=== PATIENT | female | born 1960 | race Caucasian/White ===

== ENCOUNTER 2017-09-05 18:35 | Emergency (ER) | payer MEDICARE, OTHER ==
[~2017-09-05] VITALS: Ht 157.5 cm; Wt 74.8 kg
[~2017-09-05 18:35] MED LIST: ALBU.083IS IH; ALBUIS INH; AMIT75; CEPH500 PO; CRUTCH4 XX; DIVA500EC; GABA100 PO; HYDACE5 PO; LEVSOD75; LEVSOD75 PO; MELO7.5; MONT10T; MONT10T PO; NYSTRITC; OLAN5; PRED10 PO; RANI150; RISP4; TOPI100; Ultram50 MG PO
[2017-09-05] MEDS ORDERED: IBUP600 PO (19:54)
== END 2017-09-05 21:15 | disposition home or self-care (01) ==
LOC: ER 18:35
DX: S40.012A Contusion of left shoulder, initial encounter (principal); S20.212A Contusion of left front wall of thorax, initial encounter; J44.9 Chronic obstructive pulmonary disease, unspecified; F31.9 Bipolar disorder, unspecified; E03.9 Hypothyroidism, unspecified; K21.9 Gastro-esophageal reflux disease without esophagitis; F17.210 Nicotine dependence, cigarettes, uncomplicated; Z91.040 Latex allergy status; Z79.899 Other long term (current) drug therapy; Z86.19 Personal history of other infectious and parasitic diseases; Y04.2XXA Assault by strike against or bumped into by another person, initial encounter
CPT/HCPCS: 71046; 99283

== ENCOUNTER 2017-09-29 23:03 | Emergency (ER) | payer MEDICARE, OTHER ==
[~2017-09-29] VITALS: Ht 157.5 cm; Wt 74.8 kg
[~2017-09-29 23:03] MED LIST changes: +IBUP600 PO
[2017-09-30] MEDS ORDERED: TOPI100 PO (00:17)
[2017-09-30] MEDS ORDERED: Hair, Skin & N1 EACH PO (00:18)
== END 2017-09-30 00:42 | disposition home or self-care (01) ==
LOC: ER 23:03
DX: R59.0 Localized enlarged lymph nodes (principal); S60.222A Contusion of left hand, initial encounter; J44.9 Chronic obstructive pulmonary disease, unspecified; F31.9 Bipolar disorder, unspecified; K21.9 Gastro-esophageal reflux disease without esophagitis; E03.9 Hypothyroidism, unspecified; F17.210 Nicotine dependence, cigarettes, uncomplicated; Z91.040 Latex allergy status; Z79.899 Other long term (current) drug therapy; Z86.19 Personal history of other infectious and parasitic diseases; Y08.89XA Assault by other specified means, initial encounter
CPT/HCPCS: 99282

== ENCOUNTER → 2017-12-07 | Outpatient (CLI) | payer MEDICARE, OTHER ==
[~2017-12-07] MED LIST changes: +Hair, Skin & N1 EACH PO; +TOPI100 PO
[2017-12-07 18:42] LABS: BASOPHILS ABSOLUTE AUTO 0.06 K/mm3 (0.00-0.23); BASOPHILS PERCENT AUTO 1 % (0-2); EOSINOPHILS PERCENT AUTO 1 % (0-6); Hematocrit 49.4 % (33.0-51.0); Hemoglobin 16.5 g/dL (11.5-16.0); IMMATURE GRAN ABSOLUTE AUTO 0.02 K/mm3 (0.00-0.10); IMMATURE GRAN PERCENT AUTO 0 % (0-1); LYMPHOCYTES ABSOLUTE AUTO 1.98 K/mm3 (0.84-5.20); LYMPHOCYTES PERCENT AUTO 25 % (21-46); MONOCYTES ABSOLUTE AUTO 0.48 K/mm3 (0.16-1.47); MONOCYTES PERCENT AUTO 6 % (4-13); Mean Corpuscular HGB 30.6 pg (26.0-34.0); Mean Corpuscular HGB Conc 33.4 g/dL (31.5-36.5); Mean Corpuscular Volume 92 fL (80-100); Mean Platelet Volume 10.2 fL (9.1-12.4); NEUTROPHILS ABSOLUTE AUTO 5.35 K/mm3 (1.96-9.15); NEUTROPHILS PERCENT AUTO 67 % (41-73); Platelet Count 238 K/mm3 (150-400); RDW Coefficient Variation 13.2 % (11.7-14.2); RDW Standard Deviation 44.5 fL (35.1-46.3); White Blood Cell Count 7.99 K/mm3 (4.00-11.30)
[2017-12-07 19:00] LABS: Alanine Aminotransfer (ALT/SGP 25 U/L (12-78); Albumin, Blood 4.3 g/dL (3.4-5.0); Alk Phos 127 U/L (50-136); Anion Gap 7 mmol/L (6-16); Aspartate Aminotrans (AST/SGOT 24 U/L (12-37); Bilirubin, Total 0.4 mg/dL (0.1-1.0); Blood Urea Nitrogen 17 mg/dL (8-24); Bun/Creatinine Ratio 20.2 (12.0-20.0); CHOL/HDL RATIO 2.6; CO2, Blood 26 mmol/L (21-32); Calcium, Blood 9.3 mg/dL (8.5-10.1); Chloride, Blood 106 mmol/L (98-108); Cholesterol 257 mg/dL (50-200); Creatinine, Blood 0.84 mg/dL (0.40-1.00); Free Thyroxine 0.77 ng/dL (0.70-1.60); Globulin, Blood 4.5 g/dL (2.2-4.0); Glomerular Filtration Rate >60 (60-); Glucose, Blood 88 mg/dL (70-99); HDL Cholesterol 97 mg/dL (>39); LDL/HDL RATIO 1.4; Low Density Lipoprotein Chol 131 mg/dL (0-110); Potassium, Blood 3.9 mmol/L (3.5-5.5); Sodium, Blood 139 mmol/L (136-145); Total Protein, Blood 8.8 g/dL (6.4-8.2); Triglycerides 143 mg/dL (30-160); Very Low Density Lipoprot Chol 28 mg/dL (6-32)
[2017-12-08 19:55] LABS: HCV RNA Viral Load (log) Not Detected (NOTDET)
== END | disposition home or self-care (01) ==
LOC: LAB SHORT 18:01 → LAB 18:01
PROVIDERS: Nurse Practitioner Adult Health
DX: B18.2 Chronic viral hepatitis C (principal); E78.5 Hyperlipidemia, unspecified; E03.9 Hypothyroidism, unspecified; F25.0 Schizoaffective disorder, bipolar type
CPT/HCPCS: 80053; 80061; 84439; 84443; 85025; 87389; 87522

== ENCOUNTER → 2017-12-22 | Outpatient (CLI) | payer MEDICARE, OTHER ==
[~2017-12-22] MED LIST changes: +CEFD300 PO; +CYCL10 PO; +Norco 5-325 Ta1 EACH PO; +Zofran Odt4 MG SL
[2017-12-22 10:43] LABS: Source, Urine Clean Catch
[2017-12-22 10:47] LABS: BASOPHILS ABSOLUTE AUTO 0.07 K/mm3 (0.00-0.23); BASOPHILS PERCENT AUTO 1 % (0-2); EOSINOPHILS ABSOLUTE AUTO 0.08 K/mm3 (0.00-0.68); EOSINOPHILS PERCENT AUTO 1 % (0-6); Hematocrit 42.2 % (33.0-51.0); Hemoglobin 14.6 g/dL (11.5-16.0); IMMATURE GRAN ABSOLUTE AUTO 0.03 K/mm3 (0.00-0.10); IMMATURE GRAN PERCENT AUTO 0 % (0-1); LYMPHOCYTES ABSOLUTE AUTO 2.51 K/mm3 (0.84-5.20); LYMPHOCYTES PERCENT AUTO 32 % (21-46); MONOCYTES ABSOLUTE AUTO 0.67 K/mm3 (0.16-1.47); MONOCYTES PERCENT AUTO 9 % (4-13); Mean Corpuscular HGB 31.7 pg (26.0-34.0); Mean Corpuscular HGB Conc 34.6 g/dL (31.5-36.5); Mean Corpuscular Volume 92 fL (80-100); Mean Platelet Volume 9.5 fL (9.1-12.4); NEUTROPHILS ABSOLUTE AUTO 4.42 K/mm3 (1.96-9.15); NEUTROPHILS PERCENT AUTO 57 % (41-73); Platelet Count 246 K/mm3 (150-400); RDW Coefficient Variation 13.2 % (11.7-14.2); RDW Standard Deviation 44.3 fL (35.1-46.3); Red Blood Cell Count 4.61 M/mm3 (3.80-5.20); White Blood Cell Count 7.78 K/mm3 (4.00-11.30)
[2017-12-22 10:57] LABS: Albumin, Blood 4.2 g/dL (3.4-5.0); Albumin/Globulin Ratio 1.1 (0.8-1.8); Bilirubin, Total 0.2 mg/dL (0.1-1.0); Calcium, Blood 9.3 mg/dL (8.5-10.1); Creatinine, Blood 1.05 mg/dL (0.40-1.00); Globulin, Blood 3.8 g/dL (2.2-4.0); Potassium, Blood 4.5 mmol/L (3.5-5.5)
[2017-12-22 11:18] LABS: Bacteria Many /hpf; Red Blood Cells, Urine Not Seen /hpf (0-2); Squamous Epithelial Cells Few /hpf (Few); White Blood Cells, Urine 0-2 /hpf (0-5)
== END | disposition home or self-care (01) ==
LOC: LAB EV 10:35 → LAB SHORT 10:35
PROVIDERS: Physician Assistant
DX: R10.9 Unspecified abdominal pain (principal)
CPT/HCPCS: 80053; 81015; 85025; 87077; 87086; 87186

== ENCOUNTER 2017-12-26 06:04 | Emergency (ER) | payer MEDICARE, OTHER ==
[~2017-12-26] VITALS: Ht 157.5 cm; Wt 81.7 kg
[~2017-12-26 06:04] MED LIST changes: -CEFD300 PO; -CYCL10 PO; -Norco 5-325 Ta1 EACH PO; -Zofran Odt4 MG SL
[2017-12-26] MEDS ORDERED: CEFD300 PO (06:17)
[2017-12-26] MEDS ORDERED: CYCL10 PO (06:17)
[2017-12-26 06:38] LABS: BASOPHILS ABSOLUTE AUTO 0.07 K/mm3 (0.00-0.23); BASOPHILS PERCENT AUTO 1 % (0-2); EOSINOPHILS ABSOLUTE AUTO 0.16 K/mm3 (0.00-0.68); EOSINOPHILS PERCENT AUTO 3 % (0-6); Hematocrit 39.3 % (33.0-51.0); Hemoglobin 13.3 g/dL (11.5-16.0); IMMATURE GRAN ABSOLUTE AUTO 0.02 K/mm3 (0.00-0.10); IMMATURE GRAN PERCENT AUTO 0 % (0-1); LYMPHOCYTES ABSOLUTE AUTO 1.84 K/mm3 (0.84-5.20); LYMPHOCYTES PERCENT AUTO 32 % (21-46); MONOCYTES ABSOLUTE AUTO 0.66 K/mm3 (0.16-1.47); MONOCYTES PERCENT AUTO 12 % (4-13); Mean Corpuscular HGB 31.1 pg (26.0-34.0); Mean Corpuscular HGB Conc 33.8 g/dL (31.5-36.5); Mean Corpuscular Volume 92 fL (80-100); Mean Platelet Volume 9.4 fL (9.1-12.4); NEUTROPHILS ABSOLUTE AUTO 2.93 K/mm3 (1.96-9.15); NEUTROPHILS PERCENT AUTO 52 % (41-73); Platelet Count 200 K/mm3 (150-400); RDW Coefficient Variation 13.3 % (11.7-14.2); Red Blood Cell Count 4.27 M/mm3 (3.80-5.20); White Blood Cell Count 5.68 K/mm3 (4.00-11.30)
[2017-12-26 06:56] LABS: Albumin, Blood 3.6 g/dL (3.4-5.0); Albumin/Globulin Ratio 0.9 (0.8-1.8); Bilirubin, Total 0.3 mg/dL (0.1-1.0); Bun/Creatinine Ratio 25.2 (12.0-20.0); Calcium, Blood 8.6 mg/dL (8.5-10.1); Creatinine, Blood 1.03 mg/dL (0.40-1.00); Globulin, Blood 3.9 g/dL (2.2-4.0); Potassium, Blood 3.9 mmol/L (3.5-5.5); Total Protein, Blood 7.5 g/dL (6.4-8.2)
[2017-12-26 07:17] LABS: Source, Urine Clean Catch
[2017-12-26 07:21] LABS: Bilirubin, Urine Neg (Neg); Blood, Urine Neg (Neg); Glucose Qualitative, Urine Neg (Neg); Ketones, Urine Neg (Neg); Leukocyte Esterase, Urine Neg (Neg); Nitrite, Urine Neg (Neg); Protein, Urine Neg (Neg); Urobilinogen, Urine NORM (Normal)
[2017-12-26 07:34] LABS: Appearance, Urine Clear (Clear); Color, Urine Yellow (P-Yellow)
[2017-12-26] MEDS ORDERED: Norco 5-325 Ta1 EACH PO (09:16)
[2017-12-26] MEDS ORDERED: Zofran Odt4 MG SL (09:16)
== END 2017-12-26 09:53 | disposition home or self-care (01) ==
LOC: ER 06:04
PROVIDERS: Emergency Medicine
DX: R10.11 Right upper quadrant pain (principal); R10.12 Left upper quadrant pain; F31.9 Bipolar disorder, unspecified; F20.9 Schizophrenia, unspecified; J44.9 Chronic obstructive pulmonary disease, unspecified; E03.9 Hypothyroidism, unspecified; K21.9 Gastro-esophageal reflux disease without esophagitis; F17.210 Nicotine dependence, cigarettes, uncomplicated; Z91.040 Latex allergy status; Z79.899 Other long term (current) drug therapy
CPT/HCPCS: 80053; 81003; 85025; 96361; 96374; 96375; 99284; J2405; J3010; J7030

== ENCOUNTER 2018-02-14 05:05 | Emergency (ER) | payer MEDICARE, OTHER ==
[~2018-02-14] VITALS: Ht 157.5 cm; Wt 81.7 kg
[~2018-02-14 05:05] MED LIST changes: +CEFD300 PO; +CYCL10 PO; +Norco 5-325 Ta1 EACH PO; +Zofran Odt4 MG SL
[2018-02-14] MEDS ORDERED: ALBU2.5V5 (05:23)
== END 2018-02-14 06:21 | disposition home or self-care (01) ==
LOC: ER 05:05
DX: S20.212A Contusion of left front wall of thorax, initial encounter (principal); S50.02XA Contusion of left elbow, initial encounter; W17.89XA Other fall from one level to another, initial encounter; Z91.040 Latex allergy status; Z79.899 Other long term (current) drug therapy; J44.9 Chronic obstructive pulmonary disease, unspecified; F32.9 Major depressive disorder, single episode, unspecified; F20.9 Schizophrenia, unspecified; F31.9 Bipolar disorder, unspecified; E03.9 Hypothyroidism, unspecified; K21.9 Gastro-esophageal reflux disease without esophagitis; F17.210 Nicotine dependence, cigarettes, uncomplicated
CPT/HCPCS: 71046; 73080; 99283

== ENCOUNTER 2018-03-06 09:20 | Observation (INO) | payer MEDICARE, OTHER ==
[~2018-03-06] VITALS: Ht 167.6 cm; Wt 99.8 kg
[~2018-03-06 09:20] MED LIST changes: +ALBU2.5V5
[2018-03-06 13:10] LABS: Source, Urine Voided
[2018-03-06 13:19] LABS: BASOPHILS ABSOLUTE AUTO 0.07 K/mm3 (0.00-0.23); BASOPHILS PERCENT AUTO 1 % (0-2); EOSINOPHILS ABSOLUTE AUTO 0.04 K/mm3 (0.00-0.68); EOSINOPHILS PERCENT AUTO 1 % (0-6); Hematocrit 41.5 % (33.0-51.0); IMMATURE GRAN ABSOLUTE AUTO 0.03 K/mm3 (0.00-0.10); IMMATURE GRAN PERCENT AUTO 0 % (0-1); LYMPHOCYTES ABSOLUTE AUTO 2.42 K/mm3 (0.84-5.20); LYMPHOCYTES PERCENT AUTO 28 % (21-46); MONOCYTES ABSOLUTE AUTO 0.75 K/mm3 (0.16-1.47); MONOCYTES PERCENT AUTO 9 % (4-13); Mean Corpuscular HGB 31.7 pg (26.0-34.0); Mean Corpuscular HGB Conc 33.7 g/dL (31.5-36.5); Mean Corpuscular Volume 94 fL (80-100); Mean Platelet Volume 9.3 fL (9.1-12.4); NEUTROPHILS ABSOLUTE AUTO 5.43 K/mm3 (1.96-9.15); NEUTROPHILS PERCENT AUTO 62 % (41-73); Platelet Count 254 K/mm3 (150-400); RDW Coefficient Variation 13.2 % (11.7-14.2); RDW Standard Deviation 46.1 fL (35.1-46.3); Red Blood Cell Count 4.42 M/mm3 (3.80-5.20); White Blood Cell Count 8.74 K/mm3 (4.00-11.30)
[2018-03-06 13:28] LABS: Bilirubin, Urine Neg (Neg); Blood, Urine 1+ (Neg); Glucose Qualitative, Urine Neg (Neg); Ketones, Urine Neg (Neg); Leukocyte Esterase, Urine Neg (Neg); Nitrite, Urine Neg (Neg); Protein, Urine Neg (Neg); Urobilinogen, Urine NORM (Normal)
[2018-03-06 13:39] LABS: Ethanol (Alcohol), Blood, Med <3 mg/dL
[2018-03-06 13:45] LABS: Appearance, Urine Clear (Clear); Color, Urine Yellow (P-Yellow); U Amphetamine Screen DETECTED; U Barbituate Screen Not Detected; U Benzodiazapine Screen Not Detected; U Buprenorphine Screen Not Detected; U Cannabinoids Screen Not Detected; U Cocaine Screen Not Detected; U Methadone Screen Not Detected; U Methamphetamine Screen DETECTED; U Opiates Screen Not Detected; U Oxycodone Screen Not Detected; U Phencyclidine Screen Not Detected; U Propoxyphene Screen Not Detected
[2018-03-06 13:46] LABS: Bacteria Many /hpf; Red Blood Cells, Urine 0-2 /hpf (0-2); Squamous Epithelial Cells Rare /hpf (Few); White Blood Cells, Urine 0-2 /hpf (0-5)
[2018-03-06 13:55] LABS: Acetaminophen, Random <2.0 ug/mL (10.0-30.0); Alanine Aminotransfer (ALT/SGP 20 U/L (12-78); Albumin, Blood 4.1 g/dL (3.4-5.0); Alk Phos 156 U/L (50-136); Anion Gap 11 mmol/L (6-16); Aspartate Aminotrans (AST/SGOT 21 U/L (12-37); Bilirubin, Total 0.6 mg/dL (0.1-1.0); Blood Urea Nitrogen 17 mg/dL (8-24); Bun/Creatinine Ratio 19.6 (12.0-20.0); CO2, Blood 21 mmol/L (21-32); Calcium, Blood 8.6 mg/dL (8.5-10.1); Chloride, Blood 112 mmol/L (98-108); Creatinine, Blood 0.87 mg/dL (0.40-1.00); Globulin, Blood 4.2 g/dL (2.2-4.0); Glomerular Filtration Rate >60 (60-); Glucose, Blood 101 mg/dL (70-99); Potassium, Blood 3.7 mmol/L (3.5-5.5); Sodium, Blood 144 mmol/L (136-145); Total Protein, Blood 8.3 g/dL (6.4-8.2)
== END 2018-03-09 11:35 | disposition home or self-care (01) ==
LOC: ER 09:20 → EOR 09:21
PROVIDERS: Emergency Medicine
DX: R45.851 Suicidal ideations (principal); R45.850 Homicidal ideations; F20.9 Schizophrenia, unspecified; F32.9 Major depressive disorder, single episode, unspecified; J44.9 Chronic obstructive pulmonary disease, unspecified; J45.909 Unspecified asthma, uncomplicated; K21.9 Gastro-esophageal reflux disease without esophagitis; F17.210 Nicotine dependence, cigarettes, uncomplicated; Z79.899 Other long term (current) drug therapy
CPT/HCPCS: 80053; 81001; 81025; 84443; 85025; 87077; 87086; 87186; 96372; 96374; 99285-25; G0378; G0480; J1200; J1630; P9612; Q3014

== ENCOUNTER 2018-10-10 08:29 | Observation (INO) | payer MEDICARE, OTHER ==
[~2018-10-10] VITALS: Ht 157.5 cm; Wt 81.7 kg
[~2018-10-10 08:29] MED LIST changes: -TOPI100 PO; +TOPI25 PO
[2018-10-10 08:58] LABS: BASOPHILS ABSOLUTE AUTO 0.07 K/mm3 (0.00-0.23); BASOPHILS PERCENT AUTO 1 % (0-2); EOSINOPHILS ABSOLUTE AUTO 0.09 K/mm3 (0.00-0.68); EOSINOPHILS PERCENT AUTO 2 % (0-6); Hematocrit 43.2 % (33.0-51.0); Hemoglobin 14.5 g/dL (11.5-16.0); IMMATURE GRAN ABSOLUTE AUTO 0.02 K/mm3 (0.00-0.10); IMMATURE GRAN PERCENT AUTO 0 % (0-1); LYMPHOCYTES ABSOLUTE AUTO 1.46 K/mm3 (0.84-5.20); LYMPHOCYTES PERCENT AUTO 24 % (21-46); MONOCYTES ABSOLUTE AUTO 0.51 K/mm3 (0.16-1.47); MONOCYTES PERCENT AUTO 9 % (4-13); Mean Corpuscular HGB 31.6 pg (26.0-34.0); Mean Corpuscular HGB Conc 33.6 g/dL (31.5-36.5); Mean Corpuscular Volume 94 fL (80-100); Mean Platelet Volume 9.7 fL (9.1-12.4); NEUTROPHILS ABSOLUTE AUTO 3.87 K/mm3 (1.96-9.15); NEUTROPHILS PERCENT AUTO 64 % (41-73); Platelet Count 220 K/mm3 (150-400); RDW Coefficient Variation 12.9 % (11.7-14.2); RDW Standard Deviation 44.3 fL (35.1-46.3); Red Blood Cell Count 4.59 M/mm3 (3.80-5.20); White Blood Cell Count 6.02 K/mm3 (4.00-11.30)
[2018-10-10 09:17] LABS: Alanine Aminotransfer (ALT/SGP 18 U/L (12-78); Albumin, Blood 3.8 g/dL (3.4-5.0); Alk Phos 123 U/L (50-136); Anion Gap 8 mmol/L (6-16); Aspartate Aminotrans (AST/SGOT 19 U/L (12-37); Bilirubin, Total 0.3 mg/dL (0.1-1.0); Blood Urea Nitrogen 23 mg/dL (8-24); Bun/Creatinine Ratio 22.8 (12.0-20.0); CO2, Blood 25 mmol/L (21-32); Calcium, Blood 9.1 mg/dL (8.5-10.1); Chloride, Blood 108 mmol/L (98-108); Creatinine, Blood 1.01 mg/dL (0.40-1.00); Ethanol (Alcohol), Blood, Med 21 mg/dL; Globulin, Blood 3.9 g/dL (2.2-4.0); Glomerular Filtration Rate 60 (60-); Glucose, Blood 100 mg/dL (70-99); Magnesium, Blood 2.3 mg/dL (1.6-2.4); Potassium, Blood 3.9 mmol/L (3.5-5.5); Salicylate 4.3 mg/dL (2.8-20.0); Sodium, Blood 141 mmol/L (136-145); Total Protein, Blood 7.7 g/dL (6.4-8.2)
[2018-10-10 09:37] LABS: Acetaminophen, Random <2.0 ug/mL (10.0-30.0)
[2018-10-10 12:29] LABS: Source, Urine Clean Catch
[2018-10-10 12:50] LABS: Bilirubin, Urine Neg (Neg); Blood, Urine Neg (Neg); Glucose Qualitative, Urine Neg (Neg); Ketones, Urine Neg (Neg); Leukocyte Esterase, Urine Neg (Neg); Nitrite, Urine Neg (Neg); Protein, Urine Neg (Neg); Specific Gravity, Urine 1.015 (1.003-1.022); Urobilinogen, Urine NORM (Normal)
[2018-10-10 13:16] LABS: U Amphetamine Screen DETECTED; U Barbituate Screen Not Detected; U Benzodiazapine Screen Not Detected; U Buprenorphine Screen Not Detected; U Cannabinoids Screen DETECTED; U Cocaine Screen Not Detected; U Methadone Screen Not Detected; U Methamphetamine Screen DETECTED; U Opiates Screen Not Detected; U Oxycodone Screen Not Detected; U Phencyclidine Screen Not Detected; U Propoxyphene Screen Not Detected
[2018-10-10 13:22] LABS: Appearance, Urine Clear (Clear); Color, Urine Pale Yellow (P-Yellow)
[2018-10-10] MEDS ORDERED: QUET100 PO (13:54)
[2018-10-10] MEDS ORDERED: MONT10T PO (13:56)
[2018-10-10] MEDS ORDERED: ALBU90OI61 INH (13:57)
[2018-10-10] MEDS ORDERED: ALBU3IS NEB (13:58)
== END 2018-10-11 15:40 | disposition home or self-care (01) ==
LOC: ER 08:29 → EOR 08:30
PROVIDERS: ADMIT Emergency Medicine
DX: T43.212A Poisoning by selective serotonin and norepinephrine reuptake inhibitors, intentional self-harm, initial encounter (principal); F15.10 Other stimulant abuse, uncomplicated; J44.9 Chronic obstructive pulmonary disease, unspecified; F31.9 Bipolar disorder, unspecified; K21.9 Gastro-esophageal reflux disease without esophagitis; F20.9 Schizophrenia, unspecified; F17.210 Nicotine dependence, cigarettes, uncomplicated; Z91.040 Latex allergy status; Z79.899 Other long term (current) drug therapy
CPT/HCPCS: 36415; 80053; 81003; 81025; 83735; 84443; 85025; 93005; 93010; 99285-25; G0378; G0480; Q3014

== ENCOUNTER → 2021-02-19 | Outpatient (CLI) | payer MEDICARE, OTHER ==
[~2021-02-19] MED LIST changes: +ALBU3IS NEB; +ALBU90OI61 INH; +QUET100 PO
[2021-02-19 18:38] LABS: BASOPHILS ABSOLUTE AUTO 0.08 K/mm3 (0.00-0.23); BASOPHILS PERCENT AUTO 1 % (0-2); EOSINOPHILS ABSOLUTE AUTO 0.06 K/mm3 (0.00-0.68); EOSINOPHILS PERCENT AUTO 1 % (0-6); Hematocrit 43.9 % (33.0-51.0); Hemoglobin 14.9 g/dL (11.5-16.0); IMMATURE GRAN ABSOLUTE AUTO 0.07 K/mm3 (0.00-0.10); IMMATURE GRAN PERCENT AUTO 1 % (0-1); LYMPHOCYTES ABSOLUTE AUTO 2.08 K/mm3 (0.84-5.20); LYMPHOCYTES PERCENT AUTO 24 % (21-46); MONOCYTES ABSOLUTE AUTO 0.59 K/mm3 (0.16-1.47); MONOCYTES PERCENT AUTO 7 % (4-13); Mean Corpuscular HGB Conc 33.9 g/dL (31.5-36.5); Mean Corpuscular Volume 91 fL (80-100); NEUTROPHILS ABSOLUTE AUTO 5.75 K/mm3 (1.96-9.15); NEUTROPHILS PERCENT AUTO 67 % (41-73); RDW Coefficient Variation 13.5 % (11.7-14.2); RDW Standard Deviation 45.6 fL (35.1-46.3); Red Blood Cell Count 4.81 M/mm3 (3.80-5.20); White Blood Cell Count 8.63 K/mm3 (4.00-11.30)
[2021-02-19 19:02] LABS: Mean Platelet Volume 10.8 fL (9.1-12.4); Platelet Count 206 K/mm3 (150-400)
[2021-02-19 22:11] LABS: Alanine Aminotransfer (ALT/SGP 26 U/L (12-78); Albumin/Globulin Ratio 0.9 (0.8-1.8); Alk Phos 121 U/L (50-136); Anion Gap 7 mmol/L (6-16); Aspartate Aminotrans (AST/SGOT 25 U/L (12-37); Bilirubin, Total 0.4 mg/dL (0.1-1.0); Blood Urea Nitrogen 13 mg/dL (8-24); Bun/Creatinine Ratio 13.6 (12.0-20.0); CHOL/HDL RATIO 2.8; CO2, Blood 25 mmol/L (21-32); Calcium, Blood 8.9 mg/dL (8.5-10.1); Chloride, Blood 108 mmol/L (98-108); Cholesterol 237 mg/dL (50-200); Creatinine, Blood 0.96 mg/dL (0.40-1.00); Free Thyroxine 0.79 ng/dL (0.70-1.60); Globulin, Blood 4.3 g/dL (2.2-4.0); Glomerular Filtration Rate >60 (60-); Glucose, Blood 116 mg/dL (70-99); HDL Cholesterol 84 mg/dL (>39); LDL/HDL RATIO 1.6; Low Density Lipoprotein Chol 132 mg/dL (0-110); Potassium, Blood 4.1 mmol/L (3.5-5.5); Sodium, Blood 140 mmol/L (136-145); Total Protein, Blood 8.3 g/dL (6.4-8.2); Triglycerides 103 mg/dL (30-160); Very Low Density Lipoprot Chol 20 mg/dL (6-32)
== END | disposition home or self-care (01) ==
LOC: LAB SHORT 16:48 → LAB 16:48
PROVIDERS: Nurse Practitioner Family
DX: J44.9 Chronic obstructive pulmonary disease, unspecified (principal); E03.9 Hypothyroidism, unspecified
CPT/HCPCS: 80053; 80061; 84439; 84443; 84481; 85025

== ENCOUNTER 2022-03-01 08:32 | Emergency (ER) | payer MEDICARE, OTHER ==
[~2022-03-01] VITALS: Ht 157.5 cm; Wt 113.4 kg
[2022-03-01] MEDS ORDERED: Prednisone50 MG PO (10:27)
== END 2022-03-01 11:19 | disposition home or self-care (01) ==
LOC: ER 08:32
DX: M54.16 Radiculopathy, lumbar region (principal); J44.9 Chronic obstructive pulmonary disease, unspecified; F17.210 Nicotine dependence, cigarettes, uncomplicated
CPT/HCPCS: 72100; 96372; 99283-25; A9270; J1100

== ENCOUNTER 2022-03-26 07:47 | Emergency (ER) | payer MEDICARE, OTHER ==
[~2022-03-26] VITALS: Ht 157.5 cm; Wt 113.4 kg
[~2022-03-26 07:47] MED LIST changes: +Prednisone50 MG PO
[2022-03-26] MEDS ORDERED: Percocet 5-3251 EACH PO (08:50)
== END 2022-03-26 10:04 | disposition home or self-care (01) ==
LOC: ER 07:47
DX: M54.50 Low back pain, unspecified (principal); J44.9 Chronic obstructive pulmonary disease, unspecified; F32.A Depression, unspecified; K21.9 Gastro-esophageal reflux disease without esophagitis; E03.9 Hypothyroidism, unspecified; F17.210 Nicotine dependence, cigarettes, uncomplicated; Z79.899 Other long term (current) drug therapy; Z79.52 Long term (current) use of systemic steroids; Z91.040 Latex allergy status
CPT/HCPCS: A9270

== ENCOUNTER 2022-06-03 19:00 | Emergency (ER) | payer MEDICARE, OTHER ==
[~2022-06-03] VITALS: Ht 157.5 cm; Wt 111.1 kg
[~2022-06-03 19:00] MED LIST changes: +Percocet 5-3251 EACH PO
[2022-06-03 20:20] LABS: BASOPHILS ABSOLUTE AUTO 0.05 K/mm3 (0.00-0.23); BASOPHILS PERCENT AUTO 1 % (0-2); EOSINOPHILS PERCENT AUTO 3 % (0-6); Hematocrit 45.5 % (33.0-51.0); Hemoglobin 14.8 g/dL (11.5-16.0); IMMATURE GRAN ABSOLUTE AUTO 0.02 K/mm3 (0.00-0.10); IMMATURE GRAN PERCENT AUTO 0 % (0-1); LYMPHOCYTES ABSOLUTE AUTO 2.21 K/mm3 (0.84-5.20); LYMPHOCYTES PERCENT AUTO 32 % (21-46); MONOCYTES ABSOLUTE AUTO 0.65 K/mm3 (0.16-1.47); MONOCYTES PERCENT AUTO 9 % (4-13); Mean Corpuscular HGB 30.6 pg (26.0-34.0); Mean Corpuscular HGB Conc 32.5 g/dL (31.5-36.5); Mean Corpuscular Volume 94 fL (80-100); Mean Platelet Volume 9.2 fL (9.1-12.4); NEUTROPHILS ABSOLUTE AUTO 3.78 K/mm3 (1.96-9.15); NEUTROPHILS PERCENT AUTO 55 % (41-73); Platelet Count 213 K/mm3 (150-400); RDW Coefficient Variation 13.2 % (11.7-14.2); RDW Standard Deviation 45.2 fL (35.1-46.3); Red Blood Cell Count 4.84 M/mm3 (3.80-5.20); White Blood Cell Count 6.91 K/mm3 (4.00-11.30)
[2022-06-03 20:24] LABS: Source, Urine Clean Catch
[2022-06-03 20:28] LABS: Appearance, Urine Clear (Clear); Bilirubin, Urine Neg (Neg); Blood, Urine Neg (Neg); Color, Urine Yellow (P-Yellow); Glucose Qualitative, Urine Neg (Neg); Ketones, Urine Neg (Neg); Leukocyte Esterase, Urine Neg (Neg); Nitrite, Urine Neg (Neg); Protein, Urine Neg (Neg); Urobilinogen, Urine NORM (Normal); pH, Urine 6.5 (5.0-8.0)
[2022-06-03 20:53] LABS: Albumin, Blood 3.7 g/dL (3.4-5.0); Albumin/Globulin Ratio 0.8 (0.8-1.8); Bilirubin, Total 0.3 mg/dL (0.1-1.0); Bun/Creatinine Ratio 18.6 (12.0-20.0); Calcium, Blood 9.2 mg/dL (8.5-10.1); Creatinine, Blood 0.97 mg/dL (0.40-1.00); Globulin, Blood 4.4 g/dL (2.2-4.0); Potassium, Blood 4.5 mmol/L (3.5-5.5); Total Protein, Blood 8.1 g/dL (6.4-8.2)
[2022-06-03] MEDS ORDERED: LIDO700A20 TOP (22:50)
== END 2022-06-03 22:57 | disposition home or self-care (01) ==
LOC: ER 19:00
PROVIDERS: Emergency Medicine
DX: R10.11 Right upper quadrant pain (principal); J44.9 Chronic obstructive pulmonary disease, unspecified; K21.9 Gastro-esophageal reflux disease without esophagitis; E03.9 Hypothyroidism, unspecified; F17.210 Nicotine dependence, cigarettes, uncomplicated; Z91.040 Latex allergy status; Z79.899 Other long term (current) drug therapy
CPT/HCPCS: 36415; 71045; 74176; 80053; 81003; 83690; 84484; 85025; 93005; 93010; 96374; 96375; 99284-25; A9270; J1885; J2405; J3010

== ENCOUNTER 2022-06-17 20:35 | Emergency (ER) | payer MEDICARE, OTHER ==
[~2022-06-17] VITALS: Ht 157.5 cm; Wt 117.9 kg
[~2022-06-17 20:35] MED LIST changes: +LIDO700A20 TOP
[2022-06-17 21:31] LABS: BASOPHILS ABSOLUTE AUTO 0.04 K/mm3 (0.00-0.23); BASOPHILS PERCENT AUTO 1 % (0-2); EOSINOPHILS ABSOLUTE AUTO 0.21 K/mm3 (0.00-0.68); EOSINOPHILS PERCENT AUTO 3 % (0-6); Hematocrit 45.2 % (33.0-51.0); Hemoglobin 15.1 g/dL (11.5-16.0); IMMATURE GRAN ABSOLUTE AUTO 0.01 K/mm3 (0.00-0.10); IMMATURE GRAN PERCENT AUTO 0 % (0-1); LYMPHOCYTES ABSOLUTE AUTO 1.76 K/mm3 (0.84-5.20); LYMPHOCYTES PERCENT AUTO 26 % (21-46); MONOCYTES ABSOLUTE AUTO 0.62 K/mm3 (0.16-1.47); MONOCYTES PERCENT AUTO 9 % (4-13); Mean Corpuscular HGB 30.9 pg (26.0-34.0); Mean Corpuscular HGB Conc 33.4 g/dL (31.5-36.5); Mean Corpuscular Volume 93 fL (80-100); Mean Platelet Volume 9.3 fL (9.1-12.4); NEUTROPHILS ABSOLUTE AUTO 4.04 K/mm3 (1.96-9.15); NEUTROPHILS PERCENT AUTO 61 % (41-73); Platelet Count 196 K/mm3 (150-400); RDW Coefficient Variation 12.6 % (11.7-14.2); RDW Standard Deviation 43.6 fL (35.1-46.3); Red Blood Cell Count 4.88 M/mm3 (3.80-5.20); White Blood Cell Count 6.68 K/mm3 (4.00-11.30)
[2022-06-17 21:53] LABS: Albumin, Blood 3.9 g/dL (3.4-5.0); Bilirubin, Total 0.3 mg/dL (0.1-1.0); Bun/Creatinine Ratio 15.8 (12.0-20.0); Calcium, Blood 9.1 mg/dL (8.5-10.1); Creatinine, Blood 0.89 mg/dL (0.40-1.00); Globulin, Blood 4.1 g/dL (2.2-4.0); Potassium, Blood 4.2 mmol/L (3.5-5.5)
[2022-06-17 22:02] LABS: Source, Urine Clean Catch
[2022-06-17 22:08] LABS: Bilirubin, Urine Neg (Neg); Blood, Urine Neg (Neg); Glucose Qualitative, Urine Neg (Neg); Ketones, Urine Neg (Neg); Leukocyte Esterase, Urine 1+ (Neg); Nitrite, Urine Neg (Neg); Protein, Urine Neg (Neg); Urobilinogen, Urine NORM (Normal)
[2022-06-17 22:22] LABS: Appearance, Urine Clear (Clear); Color, Urine Yellow (P-Yellow)
[2022-06-17 22:23] LABS: Bacteria Few /hpf; Red Blood Cells, Urine Not Seen /hpf (0-2); Squamous Epithelial Cells Few /hpf (Few); White Blood Cells, Urine 0-2 /hpf (0-5)
[2022-06-17] MEDS ORDERED: OXAYDO5 M1 PO (23:12)
[2022-06-17] MEDS ORDERED: IBUP800 PO (23:12)
== END 2022-06-17 23:37 | disposition home or self-care (01) ==
LOC: ER 20:35
PROVIDERS: Physician Assistant
DX: M54.10 Radiculopathy, site unspecified (principal); J44.9 Chronic obstructive pulmonary disease, unspecified; E03.9 Hypothyroidism, unspecified; F17.210 Nicotine dependence, cigarettes, uncomplicated; Z79.52 Long term (current) use of systemic steroids; Z79.899 Other long term (current) drug therapy; Z79.890 Hormone replacement therapy; Z91.040 Latex allergy status
CPT/HCPCS: 36415; 80053; 81001; 83690; 85025; J1100; J1170; J1885; J2405

== ENCOUNTER 2024-06-10 01:41 | Inpatient (IN) | payer MEDICARE, OTHER ==
[~2024-06-10] VITALS: Ht 157.5 cm; Wt 104.3 kg
[~2024-06-10 01:41] MED LIST changes: +IBUP800 PO; +OXAYDO5 M1 PO
[2024-06-10] MEDS ORDERED: Ipratropium/Albuterol SulF 2.5-0.5MG/3 ML Amp INH ONE (01:50)
[2024-06-10] MEDS ORDERED: MethylPREDNISolone Sod Succ 125 MG Vial IV ONE (01:50)
[2024-06-10] MEDS ORDERED: NS 1,000 ML IV SCH ×2 (01:50→06:45)
[2024-06-10] MEDS ORDERED: Ketorolac Tromethamine 15mg Vial IM ONE (01:50)
[2024-06-10] MEDS ORDERED: Acetaminophen 500 MG Tab PO ONE (01:50)
[2024-06-10 02:28] LABS: BASOPHILS ABSOLUTE AUTO 0.02 K/mm3 (0.00-0.23); BASOPHILS PERCENT AUTO 0 % (0-2); EOSINOPHILS PERCENT AUTO 0 % (0-6); Hematocrit 44.8 % (33.0-51.0); Hemoglobin 15.6 g/dL (11.5-16.0); IMMATURE GRAN ABSOLUTE AUTO 0.26 K/mm3 (0.00-0.10); IMMATURE GRAN PERCENT AUTO 2 % (0-1); LYMPHOCYTES ABSOLUTE AUTO 0.76 K/mm3 (0.84-5.20); LYMPHOCYTES PERCENT AUTO 5 % (21-46); MONOCYTES ABSOLUTE AUTO 0.78 K/mm3 (0.16-1.47); MONOCYTES PERCENT AUTO 5 % (4-13); Mean Corpuscular HGB 31.1 pg (26.0-34.0); Mean Corpuscular HGB Conc 34.8 g/dL (31.5-36.5); Mean Corpuscular Volume 89 fL (80-100); NEUTROPHILS ABSOLUTE AUTO 13.12 K/mm3 (1.96-9.15); NEUTROPHILS PERCENT AUTO 88 % (41-73); Platelet Count 208 K/mm3 (150-400); RDW Standard Deviation 46.2 fL (35.1-46.3); Red Blood Cell Count 5.02 M/mm3 (3.80-5.20); White Blood Cell Count 14.94 K/mm3 (4.00-11.30)
[2024-06-10 02:47] LABS: Albumin, Blood 3.3 g/dL (3.4-5.0); Albumin/Globulin Ratio 0.7 (0.8-1.8); Bilirubin, Total 0.9 mg/dL (0.1-1.0); Bun/Creatinine Ratio 9.4 (12.0-20.0); Calcium, Blood 8.7 mg/dL (8.5-10.1); Creatinine, Blood 1.38 mg/dL (0.40-1.00); Globulin, Blood 4.6 g/dL (2.2-4.0); Potassium, Blood 3.7 mmol/L (3.5-5.5); Total Protein, Blood 7.9 g/dL (6.4-8.2)
[2024-06-10 04:16] LABS: Influenza A, PCR NEGATIVE (NEGATIVE); Influenza B, PCR NEGATIVE (NEGATIVE); Resp Syncytial Virus, PCR NEGATIVE (NEGATIVE)
[2024-06-10 04:53] LABS: SARS-Cov-2 (COVID-19) PCR, MMC POSITIVE (NEGATIVE)
[2024-06-10] MEDS ORDERED: FLU VACC TS2024-25(6MOS UP)/PF 45 MCG/0.5 ML SYRINGE IM SCH (05:20)
[2024-06-10] MEDS ORDERED: Azithromycin 500 MG in NS 250 ML IV SCH (05:37)
[2024-06-10] MEDS ORDERED: CefTRIAXone Sodium 1,000 MG in NS 100 ML IV SCH (05:38)
[2024-06-10] MEDS ORDERED: Remdesivir (EUA) 200 MG in NS 250 ML IV ONE (05:45)
[2024-06-10] MEDS ORDERED: Morphine Sulfate 4 MG/1 ML Injection IV ONE (05:55)
[2024-06-10] MEDS ORDERED: Ipratropium/Albuterol SulF 2.5-0.5MG/3 ML Amp INH PRN (06:50)
[2024-06-10] MEDS ORDERED: MethylPREDNISolone Sod Succ 125 MG Vial IV SCH ×2 (08:00→21:00)
[2024-06-10 10:10] VITALS: BP 126/68
[2024-06-10] MEDS ORDERED: Ipratropium/Albuterol SulF 2.5-0.5MG/3 ML Amp INH SCH (10:40)
[2024-06-10] MEDS ORDERED: Acetaminophen 325 MG TABLET PO PRN (12:15)
[2024-06-10] MEDS ORDERED: Guaifenesin/Dextromethorphan Syrup 5 ML UDC PO PRN (12:15)
[2024-06-10] MEDS ORDERED: OxyCODONE HCL 5 MG TAB PO PRN (12:25)
[2024-06-10] MEDS ORDERED: Omeprazole 20 MG CapCR PO SCH (13:00)
--- NOTE | 2024-06-10 13:35 | NUR ---
PATIENT CALLED THIS NURSE TO TELL HER THAT SHE HAD LEFT A BAG OF BELONGINGS IN THE ER. THIS RN SENT VOCERA MESSAGE TO DIANE DEGROOT, WHO TRANSFERRED PATIENT TO THIS RN, STATING THE PATIENT HAD SAID SHE WAS MISSING SOME ITEMS. PATIENT CALLED AGAIN AFTER FIVE MINUTES ASKING ABOUT HER BELONGINGS: FOOD SERVICE HOTEL RUNNER TOLD PATIENT THE NURSE IN THE ER WOULD LOOK FOR IT WHEN SHE COULD AND PATIENT IMMEDIATELY BEGAN SOBBING AND WAILING, CRYING THAT HER THINGS WERE STOLEN AND IT WOULD FIGURE HER STUFF WAS STOLEN. I EXPLAINED THAT I DID NOT SAY THEY WERE LOST, BUT THAT THE NURSE WAS NOT AVAILABLE TO LOOK FOR THEM. SHE SAID "THEY SHOULDN'T HAVE TO LOOK FOR THEM IF THEY'RE WHERE THEY'RE SUPPOSED TO BE. I WANT IT RIGHT HERE ON MY TABLE!" AND, AGAIN, BEGAN VOCALLY SOBBING WITH HER HEAD LAID BACK AND EYES SQUINTED SHUT. CALL TO DIANE DEGROOT, DESCRIBING MISSING ALONZO, FUZZY SHIRT AND WALLET. PATIENT STATES A NURSE HAD TOLD HER SHE SHOULD LOCK IT UP AND DOES NOT KNOW WHERE IT WENT FROM THERE. [facility] WILL LOOK INTO THIS.
--- NOTE | 2024-06-10 13:48 | NUR ---
PATIENT REFUSED BLOOD DRAW TO RECHECK LACTIC ACID LEVEL STATING SHE HAS BEEN POKED TOO MANY TIMES AND HAS NO BLOOD LEFT.
--- NOTE | 2024-06-10 14:03 | NUR ---
DIANE DEGROOT, BROUGHT BAG UP WITH PATIENT'S PANTS AND WALLET INSIDE IT. NO FURTHER CONCERNS.
[2024-06-10 15:30] VITALS: BP 136/71
--- NOTE | 2024-06-10 18:07 | NUR ---
END OF SHIFT SUMMARY: A&Ox4. SEMI-COOPERATIVE WITH CARE. CALLS APPROPRIATELY AND IS ABLE TO ADVOCATE NEEDS EFFECTIVELY, THOUGH SHE HAS EXHIBITED CHILD-LIKE TEMER TRANTRUMS IN THE FACE OF NOT GETTING WHAT SHE WANTS EXHIBITED BY THROWING HER HEAD BACK AND WAILING, CRYING, AND STOMPING HER FISTS AGAINST THE BED. CONTINENT OF BOWEL AND BLADDER AND AMBULATES INDEPENDENTLY TO THE BATHROOM. LBM TODAY. TAKES MEDS WHOLE WITH FLUIDS. TELE SINUS @ 81. C/O PAIN IN RIBS AND HEADACHE FROM COUGHING FOR WHICH SHE WA MEDICATED PRN APAP AND THEN OXYCODONE WHEN APAP WAS NOT EFFECTIVE. NO IV FLUIDS GIVEN, PER DR SHAH, LUNGS FINE CRACKLES THROUGHOUT. NON-PITTING EDEMA THROUGHOUT SECONDARY TO BODY HABITUS. REPORTS SHE OFTEN STRUGGLES WITH YEAST RASH, BUT IT IS CLEARED RIGHT NOW. HAS PULLED TWO IVs OUT TODAY; CURRENT ONE IS IN RIGHT HAND. INITIALLY REFUSED BLOOD DRAW FOR RECHECK OF LACTIC ACID, BUT EVENTUALLY AGREED AFTER GETTING HER WALLET AND CLOTHING BACK THAT SHE HAD LEFT IN THE ED PRIOR TO TRANSFER TO MED FLOOR. BED IN LOWEST POSITION. CALL LIGHT WITHIN REACH. ALL NEEDS MET. REPORT TO ONCOMING NURSE.
[2024-06-10] MEDS ORDERED: GABA400 PO (19:00)
[2024-06-10] MEDS ORDERED: LISI20 PO (20:02)
[2024-06-10] MEDS ORDERED: IMPOYZ100 GM TOP (20:03)
[2024-06-10] MEDS ORDERED: AMLODIPINE BESYL5 MG PO (20:04)
[2024-06-10] MEDS ORDERED: BREO ELLIPTA 21 EAC1 INH (20:04)
[2024-06-10] MEDS ORDERED: PROAIR DIGIHAL90 MCG INH (20:05)
[2024-06-10 20:06] VITALS: BP 149/81
[2024-06-10] MEDS ORDERED: FLUTICASONE-VI1 EAC1 INH (20:06)
[2024-06-10] MEDS ORDERED: Topiramate 25 MG Tab PO SCH (21:00)
[2024-06-10] MEDS ORDERED: QUEtiapine Fumarate 100 MG Tab PO SCH (21:00)
[2024-06-11 05:04] VITALS: BP 115/67
--- NOTE | 2024-06-11 05:57 | NUR ---
SHIFT SUMMARY PT IS ALERT AND ORIENTED TIMES 3-4. PT HAD STAY WITH HER AND HELP HER TO RESTROOM. PT WAS RECEPTIVE TO CARE AND ABLE TO MAKE NEEDS KNOWN. PT DENIED PAIN AND ABLE TO AMBULATE TO AND FROM THE RESTROOM. PT COMPLIANT WITH WEARING SCD S. PT APPEARED TO SLEEP THROUGH THE NIGHT WITHOUT ISSUE.. CALL LIGHT WITHIN REACH, RAILS TIMES 2, AND BED IN LOW POSITION.
[2024-06-11] MEDS ORDERED: Levothyroxine Sodium 0.075 MG Tab PO SCH (06:00)
[2024-06-11 07:11] VITALS: BP 129/85
--- NOTE | 2024-06-11 07:46 | NUR ---
RT CALLED THIS RN STATING PATIENT WAS THREATENING TO PULL HER IV OUT BECAUSE IT WAS BURNING. IV PUMP WAS BEEPING KVO HAD COMPLETED AND NO MEDICATIONS WERE RUNNING AT THE TIME. PATIENT EDUCATED ON IMPORTANCE OF MAINTAINING PATENT IV ACCESS. MEDS HELD FOR THE MOMENT. SPOKE WITH LAUNDERETTE ATTENDANT REGARDING PLACEMENT OF POWERGLIDE IF PATIENT IN AGREEMENT. SHE HAS PULLED TWO IVs OUT WHILE IN ED AND REFUSED BLOOD DRAWS D/T NEEDLESTICKS. BENEFIT > RISK.
[2024-06-11] MEDS ORDERED: Enoxaparin 40 MG/0.4 ML SYR SC SCH (09:00)
[2024-06-11] MEDS ORDERED: Montelukast Sodium 10 MG Tab PO SCH (09:00)
[2024-06-11] MEDS ORDERED: Remdesivir (EUA) 100 MG in NS 250 ML IV SCH (12:00)
[2024-06-11 12:06] LABS: Albumin, Blood 2.6 g/dL (3.4-5.0); Albumin/Globulin Ratio 0.5 (0.8-1.8); Bilirubin, Total 0.3 mg/dL (0.1-1.0); Bun/Creatinine Ratio 23.4 (12.0-20.0); Calcium, Blood 8.7 mg/dL (8.5-10.1); Creatinine, Blood 1.24 mg/dL (0.40-1.00); Globulin, Blood 4.9 g/dL (2.2-4.0); Potassium, Blood 4.1 mmol/L (3.5-5.5); Total Protein, Blood 7.5 g/dL (6.4-8.2)
[2024-06-11 12:10] LABS: Hematocrit 39.9 % (33.0-51.0); Hemoglobin 13.2 g/dL (11.5-16.0); Mean Corpuscular HGB 30.3 pg (26.0-34.0); Mean Corpuscular HGB Conc 33.1 g/dL (31.5-36.5); Mean Corpuscular Volume 92 fL (80-100); Mean Platelet Volume 10.3 fL (9.1-12.4); Platelet Count 237 K/mm3 (150-400); RDW Coefficient Variation 14.5 % (11.7-14.2); RDW Standard Deviation 48.9 fL (35.1-46.3); Red Blood Cell Count 4.35 M/mm3 (3.80-5.20); White Blood Cell Count 23.87 K/mm3 (4.00-11.30)
[2024-06-11 13:55] LABS: BAND PERCENT MAN 16 % (0-8); BASOPHILS PERCENT MAN 0 % (0-2); EOSINOPHILS PERCENT MAN 0 % (0-6); LYMPHOCYTES ABSOLUTE MAN 0.23 K/mm3 (0.84-5.20); LYMPHOCYTES PERCENT MAN 1 % (21-46); MONOCYTES ABSOLUTE MAN 0.71 K/mm3 (0.16-1.47); MONOCYTES PERCENT MAN 3 % (4-13); NEUTROPHILS ABSOLUTE MAN 22.91 K/mm3 (1.96-9.15); SEG NEUTROPHILS PERCENT MAN 80 % (41-73); TOTAL CELLS COUNTED 100
[2024-06-11 15:26] VITALS: BP 133/85
--- NOTE | 2024-06-11 16:10 | NUR ---
REMINDED PATIENT OF SPECIMEN CUP LEFT AT BEDSIDE, REQUESTING SPUTUM COLLECTION. SHE REPORTS HER COUGH IS NOT PRODUCTIVE AND HASN'T BEEN ABLE TO "SPIT ANYTHING UP".
--- NOTE | 2024-06-11 19:40 | NUR ---
END OF SHIFT SUMMARY: A&Ox4. COOPERATIVE WITH MOST CARE. CALLS APPROPRIATELY AND IS ABLE TO ADVOCATE NEEDS. IMPAIRED JUDGMENT AND DEMANDING AT TIMES. AMBULTES SBA TO BATHROOM. CONTINENT OF BOWEL AND BLADDER. MEDS WHOLE WITH FLUIDS. C/O RIB PAIN SECONDARY TO COUGHING. MEDICATED PRN APAP, OXYCODONE AND ROBITUSSIN x2 TODAY. PIV LEFT HAND NOT PATENT SO POWERGLIDE WAS PLACED. BED IN LOWEST POSITION. CALL LIGHT WITHIN REACH. ALL NEEDS MET. REPORT TO ONCOMING NURSE.
[2024-06-11 19:46] VITALS: BP 165/93
[2024-06-12 03:46] VITALS: BP 159/91
--- NOTE | 2024-06-12 04:20 | NUR ---
SHIFT SUMMARY PT IS A&O X4, COOPERATIVE WITH CARE, SOMEWHAT AGITATED AT HS. PT C/O RIB PAIN D/T COUGHING, MEDICATED WITH OXYCODONE/COUGH SYRUP PRN PO ORDERED WITH GOOD EFFECTIVNESS. TELE: SR @42. PT CONTINUES ON ENHANCED ISOLATION D/T HX OF COVID. NO AUCTE EVENTS DURING THIS SHIFT. BED AT THE LOWEST POSITION, CALL LIGHT W/I REACH. PT IS ABLE TO MAKE HER NEEDS KNOWN.
[2024-06-12] MEDS ORDERED: NS 250 ML IV PRN (05:10)
--- NOTE | 2024-06-12 06:43 | NUR ---
PT REFUSES SPUTUM SAMPLE/PENDING LAB.
[2024-06-12 07:27] VITALS: BP 179/98
[2024-06-12 08:33] LABS: Hematocrit 38.9 % (33.0-51.0); Hemoglobin 12.9 g/dL (11.5-16.0); Mean Corpuscular HGB 30.4 pg (26.0-34.0); Mean Corpuscular HGB Conc 33.2 g/dL (31.5-36.5); Mean Corpuscular Volume 92 fL (80-100); Mean Platelet Volume 10.1 fL (9.1-12.4); Platelet Count 238 K/mm3 (150-400); RDW Coefficient Variation 14.7 % (11.7-14.2); RDW Standard Deviation 49.6 fL (35.1-46.3); Red Blood Cell Count 4.24 M/mm3 (3.80-5.20); White Blood Cell Count 21.05 K/mm3 (4.00-11.30)
[2024-06-12 08:48] LABS: Bun/Creatinine Ratio 26.5 (12.0-20.0); Calcium, Blood 8.7 mg/dL (8.5-10.1); Creatinine, Blood 1.17 mg/dL (0.40-1.00); Potassium, Blood 4.5 mmol/L (3.5-5.5)
[2024-06-12 09:14] LABS: BASOPHILS PERCENT MAN 0 % (0-2); EOSINOPHILS PERCENT MAN 0 % (0-6); LYMPHOCYTES ABSOLUTE MAN 0.84 K/mm3 (0.84-5.20); LYMPHOCYTES PERCENT MAN 4 % (21-46); MONOCYTES ABSOLUTE MAN 0.42 K/mm3 (0.16-1.47); MONOCYTES PERCENT MAN 2 % (4-13); MYELOCYTE ABSOLUTE MAN 0.21 K/mm3 (0.00-0.00); MYELOCYTE PERCENT MAN 1 % (0-0); NEUTROPHILS ABSOLUTE MAN 19.57 K/mm3 (1.96-9.15); SEG NEUTROPHILS PERCENT MAN 93 % (41-73); TOTAL CELLS COUNTED 100
[2024-06-12 15:18] VITALS: BP 193/100
[2024-06-12 16:25] VITALS: BP 175/94
--- NOTE | 2024-06-12 18:07 | NUR ---
PATIENT A/OX4, UP WITH 1 ASSIST TO RESTROOM. B/P ELEVATED, PATIENT REPORTS SHE DOES NOT TAKE HER ANTIHYPERTENSIVE THAT WAS PRESCRIBED TO HER AND DOES NOT KNOW WHAT IT IS. DR. HAY NOTIFIED OF BLOOD PRESSURE. LUNGS COARSE THROUGHOUT, BREATHING TREATMENTS PER RT. 2LO2 TO MAINTAIN SATS. CONGESTED, NONPRODUCTIVE COUGH. OXYCODONE GIVEN X1 TODAY TO TREAT RIB PAIN WITH STATED RELIEF. PATIENT IRRITABLE AT TIMES, BUT COOPERATIVE WITH CARE. ABLE TO MAKE NEEDS KNOWN.
[2024-06-12] MEDS ORDERED: Ipratropium/Albuterol SulF 2.5-0.5MG/3 ML Amp INH PRN (18:20)
[2024-06-12 20:05] VITALS: BP 147/72
[2024-06-12] MEDS ORDERED: Lactobacil 2-S.Thermo-Bifido 1 1 Cap PO SCH (21:00)
[2024-06-13] VITALS (7 sets, daily range): BP systolic 160–212; BP diastolic 80–125
--- NOTE | 2024-06-13 03:19 | NUR ---
SHIFT SUMMARY PT IS A&O X4,COOPERATIVE WITH CARE, ABLE TO MAKE HER NEEDS KNOWN. PT C/O 03/31 RIB PAIN D/T COUGHING. MEDICATED PER EMAR. O2 @2LITERS VIA NASAL CANNULA. LUNG SOUNDS COARSE PER AUSCULTATION. PT REFUSES THE SPUTUM LAB. PT HAS GOOD PO FLUID INTAKE. NO ACUTE EVENTS DURING THIS SHIFT. BED AT THE LOWEST POSITION, CALL LIGHT W/I REACH. PT CONTINUES ON ENHANCED PRECAUTIONS/ ISOLATION D/T DX OF COVID +.
[2024-06-13 05:49] LABS: BASOPHILS ABSOLUTE AUTO 0.09 K/mm3 (0.00-0.23); BASOPHILS PERCENT AUTO 0 % (0-2); EOSINOPHILS ABSOLUTE AUTO 0.15 K/mm3 (0.00-0.68); EOSINOPHILS PERCENT AUTO 1 % (0-6); Hematocrit 39.3 % (33.0-51.0); Hemoglobin 13.2 g/dL (11.5-16.0); IMMATURE GRAN ABSOLUTE AUTO 0.87 K/mm3 (0.00-0.10); IMMATURE GRAN PERCENT AUTO 4 % (0-1); LYMPHOCYTES ABSOLUTE AUTO 1.66 K/mm3 (0.84-5.20); LYMPHOCYTES PERCENT AUTO 8 % (21-46); MONOCYTES ABSOLUTE AUTO 0.96 K/mm3 (0.16-1.47); MONOCYTES PERCENT AUTO 5 % (4-13); Mean Corpuscular HGB 31.2 pg (26.0-34.0); Mean Corpuscular HGB Conc 33.6 g/dL (31.5-36.5); Mean Corpuscular Volume 93 fL (80-100); Mean Platelet Volume 10.1 fL (9.1-12.4); NEUTROPHILS PERCENT AUTO 82 % (41-73); Platelet Count 241 K/mm3 (150-400); RDW Coefficient Variation 14.6 % (11.7-14.2); RDW Standard Deviation 49.9 fL (35.1-46.3); Red Blood Cell Count 4.23 M/mm3 (3.80-5.20); White Blood Cell Count 20.23 K/mm3 (4.00-11.30)
[2024-06-13 06:12] LABS: Albumin, Blood 2.6 g/dL (3.4-5.0); Albumin/Globulin Ratio 0.6 (0.8-1.8); Bilirubin, Total 0.2 mg/dL (0.1-1.0); Bun/Creatinine Ratio 30.3 (12.0-20.0); Creatinine, Blood 1.09 mg/dL (0.40-1.00); Globulin, Blood 4.7 g/dL (2.2-4.0); Potassium, Blood 4.8 mmol/L (3.5-5.5); Total Protein, Blood 7.3 g/dL (6.4-8.2)
[2024-06-13] MEDS ORDERED: MethylPREDNISolone Sod Succ 125 MG Vial IV SCH (09:00)
[2024-06-13] MEDS ORDERED: HyDROXyzine HCl 10 MG Tab PO PRN (11:30)
[2024-06-13] MEDS ORDERED: HydrALAZINE HCl 20 MG / ML 1ML Vial IV PRN (13:20)
[2024-06-13] MEDS ORDERED: Lisinopril 20 MG Tab PO SCH (14:00)
[2024-06-13] MEDS ORDERED: AmLODIPine Besylate 5 MG Tab PO SCH (14:00)
--- NOTE | 2024-06-13 17:00 | NUR ---
ASHOK A/OX4, UP INDEPENDENTLY IN ROOM. PATIENT REPORTS "FEELING BETTER" THIS EVENING. SATS 95-96% ON RA. B/P ELEVATED, LISINOPRIL AND AMLODIPINE ORDERED TO TREAT. POWERGLIDE TO MARA WNL AND SL. RIB PAIN CONTROLLED WITH OXYCODONE AND TYLENOL. PATIENT VERY ANXIOUS THIS AM AND ATARAX GIVEN WITH STATED RELIEF. PATIENT ABLE TO MAKE NEEDS KNOWN AND CALLS APPROPRIATELY FOR ASSISTANCE.
--- NOTE | 2024-06-13 23:07 | NUR ---
NEW T-ORDER RECEIVED FROM [facility], ON-CALL HOSPITALIST: AMLODIPINE PO 5MG X1 NOW. ENTERED TO [employer], SEE EMAR. NO ADDITIONAL NEW ORDERS AT THIS TIME.
[2024-06-13] MEDS ORDERED: AmLODIPine Besylate 5 MG Tab PO ONE (23:10)
--- NOTE | 2024-06-14 01:08 | NUR ---
PT REFUSED CONTINUOUS PULSE OXIMETER.
--- NOTE | 2024-06-14 03:23 | NUR ---
SHIFT SUMMARY AT HS PT'S BP ELEVATED, THIS SPOT CHECKER RECEIVED ONE TIME AMLODIPINE ORDER FROM [facility] HOSPITALIST (SEE PREVIOUS NOTE). PT REPORTS ELEVATED BP R/T EX BOYFRIEND ATTEMPTING TO VISIT PT AT THE HOSPITAL. C/O 8/10 RIB PAIN WHEN COUGHING, MEDICATED WITH PRN TYLENOL, OXYCODONE AND COUGH SYRUP ORDERED (SEE EMAR). PT REFUSES CONTINUOUS PULSE OXIMETER/MONITORING. O2 1-2L NASAL CANNULA, >95%. NO ACUTE EVENTS DURING THIS SHIFT. BED AT THE LOWEST POSITION, CALL LIGHT WITHIN REACH. PT IS ABLE TO MAKE HER NEEDS KNOWN.
[2024-06-14 03:41] VITALS: BP 202/84
[2024-06-14 08:20] VITALS: BP 190/105
[2024-06-14] MEDS ORDERED: Lisinopril 20 MG Tab PO SCH (09:00)
[2024-06-14] MEDS ORDERED: AmLODIPine Besylate 5 MG Tab PO SCH (09:00)
[2024-06-14 09:31] LABS: Hematocrit 41.6 % (33.0-51.0); Hemoglobin 14.3 g/dL (11.5-16.0); Mean Corpuscular HGB 30.7 pg (26.0-34.0); Mean Corpuscular HGB Conc 34.4 g/dL (31.5-36.5); Mean Corpuscular Volume 89 fL (80-100); Mean Platelet Volume 9.4 fL (9.1-12.4); NRBC ABSOLUTE 0.03 K/mm3 (0.00-0.02); NRBC Auto 0.2 /100 WBC (0.0-0.2); Platelet Count 244 K/mm3 (150-400); RDW Coefficient Variation 14.3 % (11.7-14.2); RDW Standard Deviation 46.6 fL (35.1-46.3); Red Blood Cell Count 4.66 M/mm3 (3.80-5.20)
[2024-06-14 10:05] LABS: Bun/Creatinine Ratio 33.6 (12.0-20.0); Calcium, Blood 9.2 mg/dL (8.5-10.1); Creatinine, Blood 1.16 mg/dL (0.40-1.00); Potassium, Blood 4.1 mmol/L (3.5-5.5)
[2024-06-14 10:20] LABS: BAND PERCENT MAN 3 % (0-8); BASOPHILS PERCENT MAN 0 % (0-2); EOSINOPHILS PERCENT MAN 0 % (0-6); LYMPHOCYTES % ATYPICAL MANUAL 3 % (0-0); LYMPHOCYTES ABSOLUTE MAN 2.98 K/mm3 (0.84-5.20); LYMPHOCYTES PERCENT MAN 17 % (21-46); METAMYELOCYTE ABSOLUTE MAN 0.44 K/mm3 (0.00-0.00); METAMYELOCYTE PERCENT MAN 3 % (0-0); MONOCYTES ABSOLUTE MAN 1.19 K/mm3 (0.16-1.47); MONOCYTES PERCENT MAN 8 % (4-13); MYELOCYTE ABSOLUTE MAN 0.74 K/mm3 (0.00-0.00); MYELOCYTE PERCENT MAN 5 % (0-0); NEUTROPHILS ABSOLUTE MAN 9.53 K/mm3 (1.96-9.15); SEG NEUTROPHILS PERCENT MAN 61 % (41-73); TOTAL CELLS COUNTED 100
[2024-06-14 14:48] VITALS: BP 202/119
[2024-06-14 16:03] VITALS: BP 173/101
[2024-06-14 16:43] LABS: Source, Urine Clean Catch
[2024-06-14 16:51] LABS: Appearance, Urine Clear (Clear); Bilirubin, Urine Neg (Neg); Blood, Urine Neg (Neg); Glucose Qualitative, Urine Neg (Neg); Ketones, Urine Neg (Neg); Leukocyte Esterase, Urine Neg (Neg); Nitrite, Urine Neg (Neg); Protein, Urine Neg (Neg); Urobilinogen, Urine NORM (Normal)
[2024-06-14 17:01] LABS: Color, Urine Pale Yellow (P-Yellow)
--- NOTE | 2024-06-14 17:35 | NUR ---
PATIENT A/OX4, INDEPENDENT IN ROOM. MAINTAINING SATS >90% ON RA THIS SHIFT, DYSPNEA WITH EXERTION. B/P REMAINS ELEVATED, B/P MEDS ADJUSTED AGAIN TODAY AND PRN HYDRALAZINE GIVEN TO TREAT. PATIENT HAVING EPISODES OF SCREAMING AND CRYING AND PARANOID DELUSIONS. AT TIMES PATIENT IS CONVINCED THAT SHE IS DYING AND THAT THE DOCTOR NEEDS TO COME TO THE BEDSIDE. UNABLE TO EXPLAIN WHY SHE FEELS THIS WAY OR WHAT SYMPTOMS SHE IS FEELING THAT MAKES HER THINK THAT SOMETHING IS WRONG. ATARAX GIVEN X1 WITH MINIMAL RELIEF. MESSAGE LEFT WITH DR BETANCOURT ABOUT BEHAVIOR. SR ON TELE, WITH HR 60-70'S. TOLERATING REGULAR DIET. DENIES ANY NAUSEA OR ABDOMINAL PAIN. POSITIVE FOR COVID ON 05/29, MAY BE ELIGIBLE TO DISCONTINUE ISOLATION PRECAUTIONS.
[2024-06-14 19:56] VITALS: BP 188/96
[2024-06-14 21:02] VITALS: BP 160/83
[2024-06-15 05:30] VITALS: BP 187/104
--- NOTE | 2024-06-15 05:48 | NUR ---
PT AGITATED AND YELLING IN THE HOSPITAL ROOM AT 0530. PT ASKING THIS FIELD OPERATOR "AM I GOING TO ?". THIS FIELD OPERATOR USED ACTIVE LISTENING AND EMPHATY. PT'S BP ELEVATED, PRN HYDRAZALINE IV ADMINISTERED ORDERED. CONTINUING PT EDUCATION R/T ANXIETY AND AGITATION, DEEP BREATHING. HYDROXYZINE PO PRN ADMINISTERED FOR ANXIETY. PT'S MOOD HAS BEEN LABILE AND PT HAS PARANOIA DURING THIS SHIFT.
[2024-06-15 07:34] VITALS: BP 145/75
[2024-06-15 07:46] LABS: Hematocrit 46.4 % (33.0-51.0); Hemoglobin 16.2 g/dL (11.5-16.0); Mean Corpuscular HGB 30.7 pg (26.0-34.0); Mean Corpuscular HGB Conc 34.9 g/dL (31.5-36.5); Mean Corpuscular Volume 88 fL (80-100); NRBC ABSOLUTE 0.02 K/mm3 (0.00-0.02); NRBC Auto 0.1 /100 WBC (0.0-0.2); Platelet Count 287 K/mm3 (150-400); RDW Standard Deviation 45.1 fL (35.1-46.3); Red Blood Cell Count 5.27 M/mm3 (3.80-5.20); White Blood Cell Count 17.71 K/mm3 (4.00-11.30)
[2024-06-15 08:07] LABS: Bun/Creatinine Ratio 35.5 (12.0-20.0); Calcium, Blood 9.5 mg/dL (8.5-10.1); Creatinine, Blood 1.07 mg/dL (0.40-1.00); Potassium, Blood 3.3 mmol/L (3.5-5.5)
[2024-06-15 08:57] LABS: BASOPHILS PERCENT MAN 0 % (0-2); EOSINOPHILS PERCENT MAN 0 % (0-6); LYMPHOCYTES ABSOLUTE MAN 2.83 K/mm3 (0.84-5.20); LYMPHOCYTES PERCENT MAN 16 % (21-46); METAMYELOCYTE ABSOLUTE MAN 0.17 K/mm3 (0.00-0.00); METAMYELOCYTE PERCENT MAN 1 % (0-0); MONOCYTES ABSOLUTE MAN 3.54 K/mm3 (0.16-1.47); MONOCYTES PERCENT MAN 20 % (4-13); MYELOCYTE ABSOLUTE MAN 0.17 K/mm3 (0.00-0.00); MYELOCYTE PERCENT MAN 1 % (0-0); PROMYELOCYTE ABSOLUTE MAN 0.17 K/mm3 (0.00-0.00); PROMYELOCYTE PERCENT MAN 1 % (0-0); SEG NEUTROPHILS PERCENT MAN 61 % (41-73); TOTAL CELLS COUNTED 100
--- NOTE | 2024-06-15 10:31 | NUR ---
DR BETANCOURT ROUNDED, REPORTED PATIENTS COMMENTS OF "I JUST WANT TO , LET ME , CAN'T THE DOCTOR JUST GIVE ME A SHOT", PATIENT WAKES TO VOICE, ALERT AND OREINTED BUT CONFUSED AT TIMES, INDEPEDANT IN ROOM, CALL LIGHT WITH IN REACH
[2024-06-15] MEDS ORDERED: Nystatin 100,000 Unit/ML Susp 5 ML UDC MT SCH (13:00)
[2024-06-15] MEDS ORDERED: Piperacillin/Tazobactam Sod 4.5 GM in NS 100 ML IV SCH (15:00)
[2024-06-15 15:21] VITALS: BP 147/93
--- NOTE | 2024-06-15 18:06 | NUR ---
MAKES NEEDS KNOWN, PATIENT REPORTS EMOTIONS DO USUALLY FEEL BETTER IN THE EVENING AND NOT SO DEPRESSED, MEDICATED FOR PAIN WITH OXYCODONE, NYSTATIN STARTED FOR THRUSH. POSITIVE FOR BARRETT ON THE , ISOLATION TO STAY IN PLACE, KIDNEY VALUES IMPROVING, CALL LIGHT WITH IN REACH, WILL RELAY TO PM RN
[2024-06-15 21:01] VITALS: BP 141/72
[2024-06-16 05:15] VITALS: BP 127/84
[2024-06-16 05:24] LABS: Hematocrit 46.8 % (33.0-51.0); Hemoglobin 15.9 g/dL (11.5-16.0); Mean Corpuscular HGB 29.9 pg (26.0-34.0); Mean Corpuscular Volume 88 fL (80-100); Mean Platelet Volume 9.8 fL (9.1-12.4); NRBC ABSOLUTE 0.02 K/mm3 (0.00-0.02); NRBC Auto 0.2 /100 WBC (0.0-0.2); Platelet Count 280 K/mm3 (150-400); RDW Coefficient Variation 14.1 % (11.7-14.2); RDW Standard Deviation 45.5 fL (35.1-46.3); Red Blood Cell Count 5.32 M/mm3 (3.80-5.20); White Blood Cell Count 10.74 K/mm3 (4.00-11.30)
[2024-06-16 06:24] LABS: Bun/Creatinine Ratio 32.1 (12.0-20.0); Calcium, Blood 8.8 mg/dL (8.5-10.1); Creatinine, Blood 1.31 mg/dL (0.40-1.00)
[2024-06-16 07:29] LABS: BAND PERCENT MAN 7 % (0-8); BASOPHILS PERCENT MAN 0 % (0-2); EOSINOPHILS PERCENT MAN 0 % (0-6); LYMPHOCYTES % ATYPICAL MANUAL 1 % (0-0); LYMPHOCYTES ABSOLUTE MAN 2.89 K/mm3 (0.84-5.20); LYMPHOCYTES PERCENT MAN 26 % (21-46); METAMYELOCYTE ABSOLUTE MAN 0.32 K/mm3 (0.00-0.00); METAMYELOCYTE PERCENT MAN 3 % (0-0); MONOCYTES ABSOLUTE MAN 1.39 K/mm3 (0.16-1.47); MONOCYTES PERCENT MAN 13 % (4-13); MYELOCYTE ABSOLUTE MAN 1.82 K/mm3 (0.00-0.00); MYELOCYTE PERCENT MAN 17 % (0-0); NEUTROPHILS ABSOLUTE MAN 4.29 K/mm3 (1.96-9.15); SEG NEUTROPHILS PERCENT MAN 33 % (41-73); TOTAL CELLS COUNTED 100
[2024-06-16 07:34] VITALS: BP 133/62
[2024-06-16 15:20] VITALS: BP 128/92
--- NOTE | 2024-06-16 17:22 | NUR ---
PATIENT HAD A POSITIVE DAY, PATIENT DID NOT CRY, TELLING JOKES AND LAUGHING, SHOWERED TODAY, MEDICATED FOR PAIN, VERY TALKATIVE TODAY. CALL LIGHT WITH IN REACH, WILL RELAY TO PM RN
[2024-06-16 20:15] VITALS: BP 151/86
[2024-06-17 04:41] VITALS: BP 153/93
[2024-06-17 05:58] LABS: Hematocrit 48.3 % (33.0-51.0); Hemoglobin 16.6 g/dL (11.5-16.0); Mean Corpuscular HGB 30.4 pg (26.0-34.0); Mean Corpuscular HGB Conc 34.4 g/dL (31.5-36.5); Mean Corpuscular Volume 89 fL (80-100); NRBC ABSOLUTE 0.02 K/mm3 (0.00-0.02); NRBC Auto 0.2 /100 WBC (0.0-0.2); RDW Coefficient Variation 14.6 % (11.7-14.2); RDW Standard Deviation 46.4 fL (35.1-46.3); Red Blood Cell Count 5.46 M/mm3 (3.80-5.20); White Blood Cell Count 12.58 K/mm3 (4.00-11.30)
[2024-06-17 06:43] LABS: BAND PERCENT MAN 2 % (0-8); BASOPHILS PERCENT MAN 0 % (0-2); EOSINOPHILS ABSOLUTE MAN 0.37 K/mm3 (0.00-0.68); EOSINOPHILS PERCENT MAN 3 % (0-6); LYMPHOCYTES ABSOLUTE MAN 3.27 K/mm3 (0.84-5.20); LYMPHOCYTES PERCENT MAN 26 % (21-46); METAMYELOCYTE ABSOLUTE MAN 0.12 K/mm3 (0.00-0.00); METAMYELOCYTE PERCENT MAN 1 % (0-0); MONOCYTES ABSOLUTE MAN 1.38 K/mm3 (0.16-1.47); MONOCYTES PERCENT MAN 11 % (4-13); MYELOCYTE PERCENT MAN 8 % (0-0); NEUTROPHILS ABSOLUTE MAN 6.41 K/mm3 (1.96-9.15); SEG NEUTROPHILS PERCENT MAN 49 % (41-73); TOTAL CELLS COUNTED 100
[2024-06-17 06:47] LABS: Mean Platelet Volume 10.7 fL (9.1-12.4); Platelet Count 248 K/mm3 (150-400)
[2024-06-17 07:06] LABS: Calcium, Blood 8.8 mg/dL (8.5-10.1); Creatinine, Blood 1.69 mg/dL (0.40-1.00); Potassium, Blood 4.3 mmol/L (3.5-5.5)
[2024-06-17 07:47] VITALS: BP 127/58
[2024-06-17] MEDS ORDERED: Lisinopril 20 MG Tab PO SCH (09:00)
[2024-06-17] MEDS ORDERED: NS 1,000 ML IV SCH (14:15)
--- NOTE | 2024-06-17 14:54 | NUR ---
us at bedside now, patient pleasant to care
[2024-06-17 17:55] VITALS: BP 156/79
--- NOTE | 2024-06-17 18:03 | NUR ---
NO ACUTE CHANGES, PATIENT STILL EMOTIONALLY POSITIVE, US IN ROOM TODAY, IVF STARTED, SECOND URINE UA NEED TO COLLECT, TELEMETRY DISCONTINUED, MEDICATED FOR PAIN AND ANXIOUSNESS, INDEPEDANT IN ROOM, CALL LIGHT WITH IN REACH, WILL RELAY TO PM RN
[2024-06-17 19:44] VITALS: BP 168/92
[2024-06-17 20:32] VITALS: BP 164/93
[2024-06-18 02:35] LABS: Source, Urine Clean Catch
[2024-06-18 02:41] LABS: Bilirubin, Urine Neg (Neg); Blood, Urine Neg (Neg); Glucose Qualitative, Urine 3+ (Neg); Ketones, Urine Neg (Neg); Leukocyte Esterase, Urine Neg (Neg); Nitrite, Urine Neg (Neg); Protein, Urine Neg (Neg); Specific Gravity, Urine 1.015 (1.003-1.022); Urobilinogen, Urine NORM (Normal)
[2024-06-18 02:43] LABS: Color, Urine Pale Yellow (P-Yellow)
[2024-06-18 03:23] LABS: Appearance, Urine Hazy (Clear); Bacteria Rare /hpf; Red Blood Cells, Urine Not Seen /hpf (0-2); Squamous Epithelial Cells Mod /hpf (Few); White Blood Cells, Urine 0-2 /hpf (0-5); Yeast/Fungi Urine Few /hpf
[2024-06-18 03:24] LABS: Eosinophils-Raw #,Urine 0; White Blood Cells Urine 0-2 /hpf (0-5)
[2024-06-18 05:14] VITALS: BP 164/86
[2024-06-18 06:21] LABS: Hematocrit 45.9 % (33.0-51.0); Hemoglobin 15.3 g/dL (11.5-16.0); Mean Corpuscular HGB 30.6 pg (26.0-34.0); Mean Corpuscular HGB Conc 33.3 g/dL (31.5-36.5); Mean Corpuscular Volume 92 fL (80-100); Mean Platelet Volume 10.3 fL (9.1-12.4); Platelet Count 315 K/mm3 (150-400); RDW Coefficient Variation 14.3 % (11.7-14.2); RDW Standard Deviation 48.5 fL (35.1-46.3); White Blood Cell Count 12.79 K/mm3 (4.00-11.30)
[2024-06-18 07:50] VITALS: BP 148/82
[2024-06-18 08:33] LABS: BAND PERCENT MAN 1 % (0-8); BASOPHILS PERCENT MAN 0 % (0-2); EOSINOPHILS ABSOLUTE MAN 0.12 K/mm3 (0.00-0.68); EOSINOPHILS PERCENT MAN 1 % (0-6); LYMPHOCYTES ABSOLUTE MAN 2.17 K/mm3 (0.84-5.20); LYMPHOCYTES PERCENT MAN 17 % (21-46); METAMYELOCYTE ABSOLUTE MAN 0.51 K/mm3 (0.00-0.00); METAMYELOCYTE PERCENT MAN 4 % (0-0); MONOCYTES ABSOLUTE MAN 0.76 K/mm3 (0.16-1.47); MONOCYTES PERCENT MAN 6 % (4-13); MYELOCYTE ABSOLUTE MAN 0.38 K/mm3 (0.00-0.00); MYELOCYTE PERCENT MAN 3 % (0-0); NEUTROPHILS ABSOLUTE MAN 8.82 K/mm3 (1.96-9.15); SEG NEUTROPHILS PERCENT MAN 68 % (41-73); TOTAL CELLS COUNTED 100
[2024-06-18 12:33] LABS: Bun/Creatinine Ratio 26.8 (12.0-20.0); Creatinine, Blood 1.42 mg/dL (0.40-1.00); Potassium, Blood 4.5 mmol/L (3.5-5.5)
[2024-06-18 15:39] VITALS: BP 165/98
--- NOTE | 2024-06-18 16:42 | NUR ---
Upon patient's request, I visited the patient. She talks at length about her childhood growing up with a father who was a mixer lever operator, trying to survive going to [employer] schools and the spiritual and emotional distress that still carries to this day. I provided therapeutic listening and prayer. Patient showed signs of greater peace. I will continue to remain available to patient and family.
--- NOTE | 2024-06-18 18:19 | NUR ---
SHIFT SUMMARY: PT IS A&OX4-INDEPENDENT, MAKES NEEDS KNOWN. SHE IS ON ROOM AIR, RECEIVING IV ANTIBIOTICS. SHE HAD A VISITOR TODAY AND SHE STATED THAT THE VISITOR TRIED GIVING HER ALCOHOL AND DRUGS. SHE STATES THAT SHE REFUSED AND IMMEDIATELY TOLD THE VISITOR TO LEAVE AND TO NOT COME BACK. THIS VISITOR WAS WITNESSED, BUT WAS NOT WITNESSED ATTEMPTING TO GIVE THE PATIENT SUBSTANCES. VISITOR ALREADY GONE WHEN THIS WAS BROUGHT TO STAFFS ATTENTION. PATIENT IS PLEASANT AND COOPERATIVE WITH CARE, SITTING AT EDGE OF BED, CALL LIGHT WITHIN REACH, NO SIGNS OR SYMPTOMS OF DISTRESS, PLAN OF CARE ONGOING.
[2024-06-18 21:14] VITALS: BP 133/65
[2024-06-19 03:02] VITALS: BP 158/88
--- NOTE | 2024-06-19 05:42 | NUR ---
SHIFT SUMMARY ADMITTED FOR RLL PNEUMONIA/SEPSIS. FULL CODE. COVID+. IV ANTIB RX AND STEROIDS ARE SCHEDULED. IV FLUIDS INFUSING. POWERGLIDE IN RUE. A&O X4. INDEPENDENT IN ROOM. ON RA. REGULAR DIET. COOPERATIVE WITH CARE. HX OF SCHIZOPHRENIA, BIPOLAR, COPD, DRUG ABUSE.
[2024-06-19 06:23] LABS: Hematocrit 45.9 % (33.0-51.0); Mean Corpuscular HGB 30.1 pg (26.0-34.0); Mean Corpuscular HGB Conc 32.7 g/dL (31.5-36.5); Mean Corpuscular Volume 92 fL (80-100); Mean Platelet Volume 9.6 fL (9.1-12.4); Platelet Count 310 K/mm3 (150-400); RDW Coefficient Variation 14.6 % (11.7-14.2); RDW Standard Deviation 48.7 fL (35.1-46.3); Red Blood Cell Count 4.99 M/mm3 (3.80-5.20); White Blood Cell Count 11.89 K/mm3 (4.00-11.30)
[2024-06-19 06:47] LABS: Calcium, Blood 8.4 mg/dL (8.5-10.1); Creatinine, Blood 1.43 mg/dL (0.40-1.00); Potassium, Blood 4.2 mmol/L (3.5-5.5)
[2024-06-19 07:42] VITALS: BP 143/88
[2024-06-19 07:59] LABS: BAND PERCENT MAN 6 % (0-8); BASOPHILS PERCENT MAN 0 % (0-2); EOSINOPHILS PERCENT MAN 0 % (0-6); LYMPHOCYTES ABSOLUTE MAN 4.28 K/mm3 (0.84-5.20); LYMPHOCYTES PERCENT MAN 36 % (21-46); METAMYELOCYTE ABSOLUTE MAN 0.23 K/mm3 (0.00-0.00); METAMYELOCYTE PERCENT MAN 2 % (0-0); MONOCYTES ABSOLUTE MAN 0.71 K/mm3 (0.16-1.47); MONOCYTES PERCENT MAN 6 % (4-13); MYELOCYTE ABSOLUTE MAN 0.71 K/mm3 (0.00-0.00); MYELOCYTE PERCENT MAN 6 % (0-0); NEUTROPHILS ABSOLUTE MAN 5.94 K/mm3 (1.96-9.15); SEG NEUTROPHILS PERCENT MAN 44 % (41-73); TOTAL CELLS COUNTED 100
[2024-06-19] MEDS ORDERED: PredniSONE 20 MG Tab PO SCH (09:00)
[2024-06-19] MEDS ORDERED: IPRAT-ALBUT 0.5-3 ML INH (11:21)
[2024-06-19] MEDS ORDERED: MONT10T PO (11:22)
[2024-06-19] MEDS ORDERED: LEVSOD75 PO (11:22)
[2024-06-19] MEDS ORDERED: OMEP20ER PO (11:23)
[2024-06-19] MEDS ORDERED: AMOCLA875 PO (11:23)
[2024-06-19] MEDS ORDERED: PRED20 PO (11:24)
[2024-06-19] MEDS ORDERED: SEROQUEL100 MG PO (11:24)
[2024-06-19] MEDS ORDERED: VISBIOME 112.51 EACH PO (11:25)
[2024-06-19] MEDS ORDERED: TOPI25 PO (11:25)
--- NOTE | 2024-06-19 13:56 | NUR ---
DISCHARGE NOTE: PATIENT BECAME UPSET ABOUT DELAY IN DISCHARGE. DISCHARGE WENT OVER WITH PATIENT AND SHE COLLECTED HER BELONGINGS. A FRIEND ARRIVED AND OFFERED TO TAKE HER TO HER HOTEL ROOM. PATIENT WHEELED DOWN BY FRIEND. NO SIGNS OR SYMPTOMS OF DISTRESS DURING DISCHARGE. TUBE STATION ATTENDANT NOTIFIED OF UNPLANNED DISCHARGE SINCE A RIDE WAS COORDINATED FOR THE PATIENT AT 1530. TUBE STATION ATTENDANT WILL CALL AND CANCEL RIDE THAT WAS SET UP.
== END 2024-06-19 13:37 | disposition home health service (06) | DRG 871 ==
LOC: ER 01:41 → ERHOLD 05:20 → MEDS 05:20 → ENPENDDIS 06-19 10:29 → MEDS 06-19 13:37
PROVIDERS: Emergency Medicine; Internal Medicine; ADMIT Internal Medicine
PROC: 3E03329 Introduction of Other Anti-infective into Peripheral Vein, Percutaneous Approach (ICD-10-PCS; principal; 2024-06-10)
PROC: 8E0ZXY6 Isolation (ICD-10-PCS; 2024-06-10)
PROC: XW033E5 Introduction of Remdesivir Anti-infective into Peripheral Vein, Percutaneous Approach, New Technology Group 5 (ICD-10-PCS; 2024-06-11)
DX: A41.89 Other specified sepsis (principal); J12.82 Pneumonia due to coronavirus disease 2019; U07.1 COVID-19; J15.9 Unspecified bacterial pneumonia; J96.01 Acute respiratory failure with hypoxia; J44.0 Chronic obstructive pulmonary disease with (acute) lower respiratory infection; J44.1 Chronic obstructive pulmonary disease with (acute) exacerbation; N17.9 Acute kidney failure, unspecified; R65.20 Severe sepsis without septic shock; F31.9 Bipolar disorder, unspecified; F20.9 Schizophrenia, unspecified; K21.9 Gastro-esophageal reflux disease without esophagitis; J45.909 Unspecified asthma, uncomplicated; E03.9 Hypothyroidism, unspecified; F17.210 Nicotine dependence, cigarettes, uncomplicated; F43.10 Post-traumatic stress disorder, unspecified; Z98.890 Other specified postprocedural states; Z91.040 Latex allergy status; Z79.899 Other long term (current) drug therapy; Z79.890 Hormone replacement therapy; Z86.19 Personal history of other infectious and parasitic diseases; Z71.6 Tobacco abuse counseling
CPT/HCPCS: 0241U; 36415; 71045; 71260; 76770; 80048; 80053; 81001; 81003; 82570; 83605; 83690; 83880; 84145; 84300; 84484; 84540; 85025; 85379; 87040; 87070; 87077; 87186; 87205; 93005; 93010; 94640; 94664; 94760; 94762; 96361; 96372-59; 96374-59; 97161; 97530; 99285-25; A9270; C1751; J0248; J0360; J0456; J0696; J1650; J1885; J2270; J2543; J2919; J7030; J7050; J7512; Q9967

== ENCOUNTER 2024-06-20 08:04 | Emergency (ER) | payer MEDICARE, OTHER ==
[~2024-06-20] VITALS: Ht 167.6 cm; Wt 136.1 kg
[~2024-06-20 08:04] MED LIST changes: +AMLODIPINE BESYL5 MG PO; +AMOCLA875 PO; +BREO ELLIPTA 21 EAC1 INH; +FLUTICASONE-VI1 EAC1 INH; +GABA400 PO; +IMPOYZ100 GM TOP; +IPRAT-ALBUT 0.5-3 ML INH; +LISI20 PO; +OMEP20ER PO; +PRED20 PO; +PROAIR DIGIHAL90 MCG INH; +SEROQUEL100 MG PO; +VISBIOME 112.51 EACH PO
[2024-06-20 08:15] VITALS: BP 136/79
[2024-06-20] MEDS ORDERED: Albuterol 2.5 MG/3 ML VIAL INH SCH (08:15)
[2024-06-20 08:46] LABS: BASOPHILS ABSOLUTE AUTO 0.07 K/mm3 (0.00-0.23); BASOPHILS PERCENT AUTO 1 % (0-2); EOSINOPHILS ABSOLUTE AUTO 0.03 K/mm3 (0.00-0.68); EOSINOPHILS PERCENT AUTO 0 % (0-6); Hematocrit 42.1 % (33.0-51.0); IMMATURE GRAN PERCENT AUTO 5 % (0-1); LYMPHOCYTES ABSOLUTE AUTO 2.02 K/mm3 (0.84-5.20); LYMPHOCYTES PERCENT AUTO 14 % (21-46); MONOCYTES ABSOLUTE AUTO 1.04 K/mm3 (0.16-1.47); MONOCYTES PERCENT AUTO 7 % (4-13); Mean Corpuscular HGB 30.3 pg (26.0-34.0); Mean Corpuscular HGB Conc 33.3 g/dL (31.5-36.5); Mean Corpuscular Volume 91 fL (80-100); Mean Platelet Volume 9.7 fL (9.1-12.4); NEUTROPHILS ABSOLUTE AUTO 10.69 K/mm3 (1.96-9.15); NEUTROPHILS PERCENT AUTO 74 % (41-73); Platelet Count 317 K/mm3 (150-400); RDW Coefficient Variation 14.4 % (11.7-14.2); RDW Standard Deviation 48.4 fL (35.1-46.3); Red Blood Cell Count 4.62 M/mm3 (3.80-5.20); White Blood Cell Count 14.55 K/mm3 (4.00-11.30)
[2024-06-20 09:07] LABS: Albumin, Blood 3.2 g/dL (3.4-5.0); Albumin/Globulin Ratio 0.7 (0.8-1.8); Bilirubin, Total 0.4 mg/dL (0.1-1.0); Bun/Creatinine Ratio 23.7 (12.0-20.0); Calcium, Blood 9.1 mg/dL (8.5-10.1); Creatinine, Blood 1.52 mg/dL (0.40-1.00); Globulin, Blood 4.3 g/dL (2.2-4.0); Potassium, Blood 4.6 mmol/L (3.5-5.5); Total Protein, Blood 7.5 g/dL (6.4-8.2)
--- NOTE | 2024-06-20 10:42 | NUR ---
Patient is in ER16 and sees me in the hallway and asks me to step in the room. She tells me about her medical issues and then asks questions about the [facility] and its location. I provided therapeutic listening and a calming presence. Jeniffer repsonded well and showed signs of an elevated mood.
== END 2024-06-20 10:52 | disposition left against medical advice (07) ==
LOC: ER 08:04
PROVIDERS: Emergency Medicine
DX: R07.89 Other chest pain (principal); J44.89 Other specified chronic obstructive pulmonary disease; F31.9 Bipolar disorder, unspecified; K21.9 Gastro-esophageal reflux disease without esophagitis; E03.9 Hypothyroidism, unspecified; F17.210 Nicotine dependence, cigarettes, uncomplicated; Z91.040 Latex allergy status; Z79.899 Other long term (current) drug therapy; Z79.890 Hormone replacement therapy
CPT/HCPCS: 71045; 80053; 84484; 85025; 93005; 93010; 94644; 94664; 99285-25

== ENCOUNTER 2024-07-01 23:06 | Emergency (ER) | payer MEDICARE, OTHER ==
[~2024-07-01] VITALS: Ht 157.5 cm; Wt 124.7 kg
[2024-07-01] MEDS ORDERED: Mag Hydrox/AL Hydrox/Simeth 30 ML UDC PO ONE (23:20)
[2024-07-01] MEDS ORDERED: Atropine/Scopalam/Hyoscam/PB 5 ML UDC PO ONE (23:20)
[2024-07-01] MEDS ORDERED: Lidocaine 2% Viscous Soln 15 ML UDC PO ONE (23:20)
[2024-07-01 23:44] LABS: BASOPHILS ABSOLUTE AUTO 0.03 K/mm3 (0.00-0.23); BASOPHILS PERCENT AUTO 0 % (0-2); EOSINOPHILS ABSOLUTE AUTO 0.18 K/mm3 (0.00-0.68); EOSINOPHILS PERCENT AUTO 2 % (0-6); Hematocrit 39.8 % (33.0-51.0); Hemoglobin 13.2 g/dL (11.5-16.0); IMMATURE GRAN ABSOLUTE AUTO 0.02 K/mm3 (0.00-0.10); IMMATURE GRAN PERCENT AUTO 0 % (0-1); LYMPHOCYTES ABSOLUTE AUTO 1.94 K/mm3 (0.84-5.20); LYMPHOCYTES PERCENT AUTO 23 % (21-46); MONOCYTES ABSOLUTE AUTO 0.84 K/mm3 (0.16-1.47); MONOCYTES PERCENT AUTO 10 % (4-13); Mean Corpuscular HGB 30.8 pg (26.0-34.0); Mean Corpuscular HGB Conc 33.2 g/dL (31.5-36.5); Mean Corpuscular Volume 93 fL (80-100); Mean Platelet Volume 9.3 fL (9.1-12.4); NEUTROPHILS ABSOLUTE AUTO 5.31 K/mm3 (1.96-9.15); NEUTROPHILS PERCENT AUTO 64 % (41-73); Platelet Count 183 K/mm3 (150-400); RDW Coefficient Variation 14.2 % (11.7-14.2); RDW Standard Deviation 48.5 fL (35.1-46.3); Red Blood Cell Count 4.28 M/mm3 (3.80-5.20); White Blood Cell Count 8.32 K/mm3 (4.00-11.30)
[2024-07-02] VITALS: BP 143/98
[2024-07-02 00:01] LABS: Albumin/Globulin Ratio 0.7 (0.8-1.8); Bilirubin, Total 0.2 mg/dL (0.1-1.0); Bun/Creatinine Ratio 11.2 (12.0-20.0); Calcium, Blood 8.3 mg/dL (8.5-10.1); Creatinine, Blood 1.07 mg/dL (0.40-1.00); Globulin, Blood 4.4 g/dL (2.2-4.0); Potassium, Blood 3.7 mmol/L (3.5-5.5); Total Protein, Blood 7.4 g/dL (6.4-8.2)
== END 2024-07-02 00:23 | disposition home or self-care (01) ==
LOC: ER 23:06
PROVIDERS: Emergency Medicine
DX: K29.00 Acute gastritis without bleeding (principal); K21.9 Gastro-esophageal reflux disease without esophagitis; J44.9 Chronic obstructive pulmonary disease, unspecified; E03.9 Hypothyroidism, unspecified; F17.210 Nicotine dependence, cigarettes, uncomplicated; Z86.16 Personal history of COVID-19; Z91.040 Latex allergy status; Z79.890 Hormone replacement therapy; Z79.899 Other long term (current) drug therapy
CPT/HCPCS: 80053; 83690; 85025; 99284; A9270

== ENCOUNTER → 2024-08-03 | Outpatient (CLI) | payer MEDICARE, OTHER ==
[2024-08-03 15:05] LABS: BASOPHILS ABSOLUTE AUTO 0.07 K/mm3 (0.00-0.23); BASOPHILS PERCENT AUTO 1 % (0-2); EOSINOPHILS ABSOLUTE AUTO 0.19 K/mm3 (0.00-0.68); EOSINOPHILS PERCENT AUTO 3 % (0-6); Hematocrit 44.8 % (33.0-51.0); Hemoglobin 14.8 g/dL (11.5-16.0); IMMATURE GRAN ABSOLUTE AUTO 0.02 K/mm3 (0.00-0.10); IMMATURE GRAN PERCENT AUTO 0 % (0-1); LYMPHOCYTES ABSOLUTE AUTO 1.77 K/mm3 (0.84-5.20); LYMPHOCYTES PERCENT AUTO 25 % (21-46); MONOCYTES ABSOLUTE AUTO 0.51 K/mm3 (0.16-1.47); MONOCYTES PERCENT AUTO 7 % (4-13); Mean Corpuscular Volume 94 fL (80-100); Mean Platelet Volume 10.2 fL (9.1-12.4); NEUTROPHILS ABSOLUTE AUTO 4.43 K/mm3 (1.96-9.15); NEUTROPHILS PERCENT AUTO 63 % (41-73); Platelet Count 253 K/mm3 (150-400); RDW Standard Deviation 49.1 fL (35.1-46.3); Red Blood Cell Count 4.77 M/mm3 (3.80-5.20); White Blood Cell Count 6.99 K/mm3 (4.00-11.30)
[2024-08-03 16:22] LABS: Albumin, Blood 3.6 g/dL (3.4-5.0); Albumin/Globulin Ratio 0.8 (0.8-1.8); Bilirubin, Total 0.4 mg/dL (0.1-1.0); Calcium, Blood 9.6 mg/dL (8.5-10.1); Creatinine, Blood 1.15 mg/dL (0.40-1.00); Globulin, Blood 4.6 g/dL (2.2-4.0); Thyroid Stimulating Hormone 2.45 uIU/mL (0.360-4.800); Total Protein, Blood 8.2 g/dL (6.4-8.2)
== END ==
LOC: LAB 13:45 → LAB SHORT 13:45
DX: R19.7 Diarrhea, unspecified (principal); R53.82 Chronic fatigue, unspecified
CPT/HCPCS: 80053; 84443; 85025